=== PATIENT | female | born 1990 | race American Indian/Alaskan Native ===

== ENCOUNTER 2020-10-28 04:14 | Emergency (ER) | payer OTHER ==
[2020-10-28] MEDS ORDERED: LORazepam 1 MG TAB PO ONE (04:21)
[2020-10-28] MEDS ORDERED: dexAMETHasone 4 MG/ML VIAL IV ONE (04:21)
[2020-10-28] MEDS ORDERED: IPRATROPIUM/ALBUTEROL SULFATE 3 ML AMPUL.NEB IH ONE (04:21)
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
[2020-10-28] MEDS ORDERED: ALBUTEROL 2.5 MG/3 ML NEBU IH ONE (04:39)
[2020-10-28] MEDS ORDERED: IPRATROPIUM 0.02% NEBU 2.5 ML IH ONE (04:40)
[2020-10-28 05:39] VITALS: BP 137/90
== END 2020-10-28 06:04 | disposition home or self-care (01) ==
LOC: ED 04:14
DX: J45.901 Unspecified asthma with (acute) exacerbation (principal); F41.9 Anxiety disorder, unspecified; Z88.0 Allergy status to penicillin; Z88.8 Allergy status to other drugs, medicaments and biological substances; Z79.899 Other long term (current) drug therapy
CPT/HCPCS: 94640; 96374; 99283; J1100; 94644